=== PATIENT | male | born 2000 | race American Indian/Alaskan Native ===

== ENCOUNTER 2020-06-30 19:55 | Emergency (ER) | payer OTHER ==
[2020-06-30 20:25] VITALS: BP 141/89
[2020-06-30] MEDS ORDERED: IBUPROFEN 600 MG TAB PO ONE (21:20)
[2020-06-30] MEDS ORDERED: CYCLOBENZAPRINE 10 MG TAB PO ONE (21:20)
[2020-06-30] MEDS ORDERED: ACETAMINOPHEN 500 MG TAB PO ONE (21:20)
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
== END 2020-06-30 23:23 | disposition home or self-care (01) ==
LOC: ED 19:55
DX: S53.401A Unspecified sprain of right elbow, initial encounter (principal); S40.021A Contusion of right upper arm, initial encounter; S50.812A Abrasion of left forearm, initial encounter; Z79.899 Other long term (current) drug therapy; V49.49XA Driver injured in collision with other motor vehicles in traffic accident, initial encounter; Y92.410 Unspecified street and highway as the place of occurrence of the external cause; Y93.89 Activity, other specified; Y99.8 Other external cause status